=== PATIENT | male | born 1955 | race Caucasian/White ===

== ENCOUNTER 2017-03-09 19:22 | Emergency (ER) | payer BC ==
[2017-03-09 19:54] VITALS: BP 127/76
--- NOTE | 2017-03-14 20:50 | UC ---
HPI Febrile Illness - HPI Summary HPI Summary: 61 YEAR OLD KIDNEY TRANSPLANT PATIENT PRESENTS WITH COMPLAINS OF FEVER AND FLU LIKE SYMPTOMS. - History of Current Complaint Chief Complaint: UCGeneralIllness - Allergy/Home Medications Allergies/Adverse Reactions: Allergies Allergy/AdvReac Type Severity Reaction Status Date / Time No Known Allergies Allergy Verified 03/09/17 19:32 PMH/Surg Hx/FS Hx/Imm Hx Previously Healthy: Yes Endocrine/Hematology History: Denies: Hx Diabetes, Hx Thyroid Disease Cardiovascular History: Reports: Hx Hypertension Respiratory History: Denies: Hx Asthma, Hx Chronic Obstructive Pulmonary Disease (COPD) GI History: Denies: Hx Ulcer - Surgical History Surgery Procedure, Year, and Place: kidney transplant 01/1017 Infectious Disease History: No Infectious Disease History: Reports: Hx Hepatitis - enlarged with cysts Denies: Hx Human Immunodeficiency Virus (HIV), Traveled Outside the [place] in Last 30 Days - Social History Alcohol Use: Occasionally Substance Use Type: Reports: None Smoking Status (MU): Never Smoked Tobacco Review of Systems Constitutional: Fever, Chills, Fatigue Skin: Negative Eyes: Negative ENT: Negative Respiratory: Negative Cardiovascular: Negative Gastrointestinal: Negative Genitourinary: Negative Motor: Negative Neurovascular: Negative Musculoskeletal: Negative Neurological: Negative Psychological: Negative All Other Systems Reviewed And Are Negative: Yes Physical Exam Triage Information Reviewed: Yes Vital Signs: Initial Vital Signs Temp 38.5 C 03/09/17 19:27 Pulse 85 03/09/17 19:27 Resp 20 03/09/17 19:27 BP 127/76 03/09/17 19:27 Pulse Ox 98 03/09/17 19:27 Vital Signs Reviewed: Yes Eye Exam: Normal ENT Exam: Normal Dental Exam: Normal Neck exam: Normal Neck: Positive: 1 Respiratory Exam: Normal Cardiovascular Exam: Normal Abdominal Exam: Normal Musculoskeletal Exam: Normal Neurological Exam: Normal Psychological Exam: Normal Skin Exam: Normal Course/Dx - Diagnoses Clinic Provider Diagnoses: FEVER. CHILLS. HEADACHE Discharge - Discharge Plan Condition: Stable Disposition: AGAINST MEDICAL ADVICE Referrals: No Primary Care Phys,NOPCP [Primary Care Provider] - Additional Instructions: PLEASE GO TO ER TO RULE OUT KIDNEY TRANSPLANT REJECTION.
== END 2017-03-09 19:45 | disposition left against medical advice (07) ==
LOC: UCEAST 19:22
DX: R50.9 Fever, unspecified (principal); R51 Headache; R53.83 Other fatigue; Z94.0 Kidney transplant status; I10 Essential (primary) hypertension
CPT/HCPCS: 99212; G0463

== ENCOUNTER 2017-03-09 19:54 | Emergency (ER) | payer BC ==
--- NOTE | 2017-03-09 20:46 | RAD ---
INDICATION: Fever COMPARISON: None TECHNIQUE: PA and lateral dual-energy views were obtained. FINDINGS: Bones/Soft Tissues: There are no acute bony findings. Cardiomediastinal: The cardiomediastinal silhouette is normal. Lungs: There is linear change in the right middle lobe most consistent with atelectasis. Pleura: There are no pleural effusions. Other: There is partial eventration of the right hemidiaphragm. IMPRESSION: RIGHT MIDDLE LOBE ATELECTASIS. PARTIAL EVENTRATION RIGHT HEMIDIAPHRAGM.
--- NOTE | 2017-03-09 21:03 | ED ---
Sravan Santana Alok, scribed for Kiko Olsen MD on 03/09/17 at 2024 . HPI Febrile Illness - HPI Summary HPI Summary: 61M presents to the ED with a fever since 1600 today at 102 F. Pt recently had a kidney transplant at [facility] on 01/08/17, was released on 01/11/17, and last followed up on 01/17/17 with them. Today, pt last took Tylenol at 1800. Pt also notes fatigue for the last 3 days as well as diarrhea for the last week. Pt denies cough, N/V. PMHx includes HTN and A-fib. - History of Current Complaint Chief Complaint: EDFever Time Seen by Provider: 03/09/17 20:13 Hx Obtained From: Patient Onset/Duration: Started Hours Ago, Atraumatic, Still Present Timing: Constant Temperature: 102 F Initial Severity: Moderate Current Severity: Moderate Pain Intensity: 0 Pain Scale Used: 0-10 Numeric Aggravating Factors: Nothing Alleviating Factors: OTC Medicine Associated Signs and Symptoms: Diarrhea, Other: - fatigue - Allergy/Home Medications Allergies/Adverse Reactions: Allergies Allergy/AdvReac Type Severity Reaction Status Date / Time No Known Allergies Allergy Verified 03/09/17 19:32 PMH/Surg Hx/FS Hx/Imm Hx Endocrine/Hematology History: Denies: Hx Diabetes, Hx Thyroid Disease Cardiovascular History: Reports: Hx Hypertension Respiratory History: Denies: Hx Asthma, Hx Chronic Obstructive Pulmonary Disease (COPD) GI History: Denies: Hx Ulcer - Surgical History Surgery Procedure, Year, and Place: kidney transplant 01/1017 Infectious Disease History: No Infectious Disease History: Reports: Hx Hepatitis - enlarged with cysts Denies: Hx Human Immunodeficiency Virus (HIV), Traveled Outside the [place] in Last 30 Days - Family History Known Family History: Positive: Hypertension - Social History Occupation: Employed Full-time Lives: With Family Alcohol Use: Occasionally Substance Use Type: Reports: None Smoking Status (MU): Never Smoked Tobacco Review of Systems Positive: Fever, Fatigue Negative: Cough Positive: Diarrhea. Negative: Vomiting, Nausea All Other Systems Reviewed And Are Negative: Yes Physical Exam Triage Information Reviewed: Yes Vital Signs On Initial Exam: Initial Vitals Temp Pulse Resp BP Pulse Ox 99.9 F 110 20 107/75 96 03/09/17 19:57 03/09/17 19:57 03/09/17 19:57 03/09/17 19:57 03/09/17 19:57 Vital Signs Reviewed: Yes Appearance: Positive: Well-Appearing, No Pain Distress Skin: Positive: Warm Head/Face: Positive: Normal Head/Face Inspection Eyes: Positive: BESSY ENT: Positive: Hearing grossly normal, Pharynx normal Neck: Positive: Supple, Nontender Respiratory/Lung Sounds: Positive: Clear to Auscultation, Breath Sounds Present Cardiovascular: Positive: RRR Abdomen Description: Positive: Soft Bowel Sounds: Positive: Present Musculoskeletal: Positive: Strength/ROM Intact Neurological: Positive: Alert, Oriented to Person Place, Time, Normal Gait Psychiatric: Positive: Affect/Mood Appropriate Diagnostics - Vital Signs Vital Signs Temp Pulse Resp BP Pulse Ox 03/09/17 19:57 99.9 F 110 20 107/75 96 - Laboratory Result Diagrams: 03/09/17 20:55 03/09/17 20:55 Lab Statement: Any lab studies that have been ordered have been reviewed, and results considered in the medical decision making process. - Radiology CXR Xray Interpretation: Positive (See Comments) - IMPRESSION: RIGHT MIDDLE LOBE ATELECTASIS. PARTIAL EVENTRATION RIGHT HEMIDIAPHRAGM. Radiology Interpretation Completed By: Radiologist Re-Evaluation - Re-Evaluation First Eval Re-Evaluation Time: 21:35 Change: Unchanged Comment: Updated pt on consult process with pt's transplant doctor Second Eval Re-Evaluation Time: 21:49 Change: Unchanged Comment: Informed patient of Dr. Brown's recommendation to transfer patient to [place]. Pt understands and agrees with plan. Course/Dx - Course Course Of Treatment: Spoke with Dr. Brown (Patient transplant Doctor). Will transfer patient to [place] for further treatment. - Diagnoses Provider Diagnoses: FUO (fever of unknown origin), Renal transplant recipient - Provider Notifications Discussed Care Of Patient With: Dr. Brown (Pt's transplant doctor) - Discussed pt condition and hx Time Discussed With Above Provider: 21:41 - Dr. Brown is recommending transfer to [place] Discharge - Discharge Plan Condition: Fair Disposition: TRANS HIGHER LVL OF CARE FAC Referrals: Non Staff,Doctor [Primary Care Provider] - The documentation as recorded by the Sravan nieves Alok accurately reflects the service I personally performed and the decisions made by me, Kiko Olsen MD.
[2017-03-09 21:05] LABS: Hematocrit 43 % (42-52); Hemoglobin 13.6 g/dl (14.0-18.0); Mean Corpuscular HGB Conc 32 g/dl (31-36); Mean Corpuscular Hemoglobin 31 pg (27-31); Mean Corpuscular Volume 98 fL (80-94); Mean Platelet Volume 10 um3 (7.4-10.4); Red Blood Count 4.34 10^6/ul (4.0-5.4); Red Cell Distribution Width 16 % (10.5-15); White Blood Count 9.8 10^3/ul (3.5-10.8)
[2017-03-09 21:08] LABS: Anion Gap 12 mmol/L (2-11); EGFR Non-African American 41.2 (>60); Manual Entry Verification MD; POC CO2 Carbon Dioxide 25 mmol/L (24-29); POC Chloride 99 mmol/L (98-109); POC Glucose 134 mg/dL (70-105); POC Potassium 4.5 mmol/L (3.5-4.9); POC Sodium 136 mmol/L (138-146)
[2017-03-09 21:25] LABS: Urine Bacteria Absent (Absent); Urine Bilirubin Negative (Negative); Urine Glucose Negative (Negative); Urine Nitrite Negative (Negative)
[2017-03-09 22:06] LABS: Albumin 3.8 g/dL (3.2-5.2); BUN/Creatinine Ratio 9.4 (8-20); C Reactive Protein 81.41 mg/L (< 5.00); Calcium 9.1 mg/dL (8.6-10.3); EGFR African American 57.2 (>60); EGFR Non-African American 44.5 (>60); Globulin 2.9 g/dL (2-4); Magnesium 1.3 mg/dL (1.9-2.7); Potassium 4.5 mmol/L (3.5-5.0); Total Protein 6.7 g/dL (6.4-8.9)
[2017-03-09] MEDS ORDERED: Vancomycin(*) 1,000 MG in NS 0.9% 250 ML* 250 ML IVPB ONE (22:11)
[2017-03-10 08:04] VITALS: BP 105/71
[2017-03-10] MEDS ORDERED: methylPREDNISolone 125 MG* 2 ML VIAL IV ONE (08:14)
[2017-03-10] MEDS ORDERED: methylPREDNISolone 125 MG* 2 ML VIAL ONE (08:15)
--- NOTE | 2017-03-10 13:05 | ED ---
IChung Thomas, scribed for Juan Tejeda MD on 03/10/17 at 0820 . Progress - Progress Note Progress Note: The patient is a sign out from Dr. Olsen who is complaining of fever s/p renal transplant. The patient is not taking anti-rejection medication and is unaware of what these are. He is awaiting transplant. We will give him Solu- Medrol prior to transplant. The patient was transferred to higher level of care. Re-Evaluation - Re-Evaluation First Eval Re-Evaluation Time: 21:35 Change: Unchanged Comment: Updated pt on consult process with pt's transplant doctor Second Eval Re-Evaluation Time: 21:49 Change: Unchanged Comment: Informed patient of Dr. Brown's recommendation to transfer patient to [place]. Pt understands and agrees with plan. Course/Dx - Course Course Of Treatment: Spoke with Dr. Brown (Patient transplant Doctor). Will transfer patient to [place] for further treatment. The patient is a sign out from Dr. Olsen who is complaining of fever s/p renal transplant. The patient is not taking anti-rejection medication and is unaware of what these are. He is awaiting transplant. We will give him Solu-Medrol prior to transplant. I received a call from the transfer center at 09:27. - Diagnoses Provider Diagnoses: Renal transplant recipient, Sepsis Provider Diagnoses: (Ruled Out): FUO (fever of unknown origin) - Provider Notifications Discussed Care Of Patient With: Dr. Brown Time Discussed With Above Provider: 21:41 - Dr. Brown is recommending transfer to [place] The documentation as recorded by the Chung nieves Thomas accurately reflects the service I personally performed and the decisions made by me, Juan Tejeda MD.
--- NOTE | 2017-03-11 09:51 | ED ---
Progress - Progress Note Progress Note: The patient is a sign out from Dr. Olsen who is complaining of fever s/p renal transplant. The patient is not taking anti-rejection medication and is unaware of what these are. He is awaiting transplant. We will give him Solu- Medrol prior to transplant. The patient was transferred to higher level of care. UPDATE: Pt's preliminary blood cx's reveal: aerobic bottle gram stain - gram negative bacilli anaerobic bottle gram stain - gram negative bacilli organism - e. coli Pt was transferred to [facility] for high level of care and she's the recipient of an organ transplant as of 01/2017. Will forward results to their team. frederick Elizabeth, robert. Re-Evaluation - Re-Evaluation First Eval Re-Evaluation Time: 21:35 Change: Unchanged Comment: Updated pt on consult process with pt's transplant doctor Second Eval Re-Evaluation Time: 21:49 Change: Unchanged Comment: Informed patient of Dr. Brown's recommendation to transfer patient to [place]. Pt understands and agrees with plan. Course/Dx - Course Course Of Treatment: Spoke with Dr. Brown (Patient transplant Doctor). Will transfer patient to [place] for further treatment. The patient is a sign out from Dr. Olsen who is complaining of fever s/p renal transplant. The patient is not taking anti-rejection medication and is unaware of what these are. He is awaiting transplant. We will give him Solu-Medrol prior to transplant. I received a call from the transfer center at 09:27. - Diagnoses Provider Diagnoses: Renal transplant recipient, Sepsis - Provider Notifications Time Discussed With Above Provider: 21:41 - Dr. Brown is recommending transfer to [place]
== END 2017-03-10 08:29 | disposition short-term general hospital (02) ==
LOC: ED 19:54
DX: A41.9 Sepsis, unspecified organism (principal); Z94.0 Kidney transplant status; I10 Essential (primary) hypertension; I48.91 Unspecified atrial fibrillation
CPT/HCPCS: 36415; 71020; 80048; 80053; 81003; 81015; 83605; 83735; 85025; 86140; 87040; 87077; 87086; 87186; 87205; 96360; 96374; 96375; 96376; 99284; J2543; J2930; J3370